=== PATIENT | female | born 1955 | race Hispanic/Latino ===

== ENCOUNTER 2016-08-20 13:40 | Emergency (ER) | payer MEDICAID ==
[2016-08-20 13:48] VITALS: RESP 20; TEMP 97.6; O2SAT 100
[2016-08-20 14:52] LABS: ADD MANUAL DIFF? NO
--- NOTE | 2016-08-20 14:55 | ED PDOC ---
Arrival/HPI - General Chief Complaint: Abnormal Skin Integrity Time Seen by Provider: 08/20/16 13:47 Historian: Patient, Family - History of Present Illness Narrative History of Present Illness (Text): 08/20/16 14:53 A 61 year old female, whose past medical history includes seizures, presents to the emergency room complaining of an abscess and 2 episodes of seizures today. Patient reports holding her Dilantin (generic) medication (1000 mg/day) for a few days b/c it was running out. However she still had a few and took at least 10 tabs (1000mg) prior to coming after having the seizures and has no symptoms at this time. Patient says seizures typically start on one side of the body and cause speech slurring and unsteadiness for 1-2 minutes with no LOC and today 's were typical with full resolution of symptoms as noted. Patient described her right side to cramp and become numb, which lasted about a minute or two. Patient states she has a headache but denies fever or any other complaints at this time. She states she currently feels fine to walk and has no weakness. Patient also says she has a breast skin abscess for which she is taking bactrim started 5 days ago. No fever or pus. Patient says she also had gotten a script for the 1000 mg daily of dilantin when she saw Dr. Crenshaw a few days ago but was unable to fill due to insurance pre-authorization requirement. Time/Duration: > week Symptom Onset: Gradual Symptom Course: Unchanged Activities at Onset: Rest Modifying Factors (Text): Dilantin (generic) help with her seizures Context: Home Associated Symptoms (Text): headache, vomiting Past Medical History - Provider Review Nursing Documentation Reviewed: Yes - Infectious Disease Hx of Infectious Diseases: None - Reproductive Menopause: Yes - Cardiac Hx Cardiac Disorders: Yes - Pulmonary Hx Respiratory Disorders: Yes Hx Emphysema: Yes - Neurological Hx Neurological Disorder: Yes Hx Seizures: Yes - HEENT Hx HEENT Disorder: No - Renal Hx Renal Disorder: No - Endocrine/Metabolic Hx Endocrine Disorders: Yes Hx Diabetes Mellitus Type 2: Yes - Hematological/Oncological Hx Blood Disorders: No - Integumentary Hx Dermatological Disorder: No - Musculoskeletal/Rheumatological Hx Musculoskeletal Disorders: No - Gastrointestinal Hx Gastrointestinal Disorders: No - Genitourinary/Gynecological Hx Genitourinary Disorders: No - Psychiatric Hx Psychophysiologic Disorder: Yes Hx Bipolar Disorder: Yes Hx Substance Use: No - Surgical History Hx Cholecystectomy: Yes - Anesthesia Hx Anesthesia: Yes Hx Anesthesia Reactions: No Hx Malignant Hyperthermia: No Family/Social History - Physician Review Nursing Documentation Reviewed: Yes Family/Social History: No Known Family HX Smoking Status: Former Smoker Hx Alcohol Use: No Hx Substance Use: No Allergies/Home Meds Allergies/Adverse Reactions: Allergies No Known Allergies Allergy (Unverified 01/31/15 15:05) Home Medications: Home Meds Medication Instructions Recorded Confirmed Atorvastatin [Lipitor] 10 mg PO DIN 01/31/15 08/20/16 Phenytoin, Extended [Dilantin 100 mg PO 5XD 01/31/15 08/20/16 Kapseals] Sulfamethoxazole/Trimethoprim 1 tab PO BID 08/20/16 08/20/16 [Bactrim DS Tab] Review of Systems - Review of Systems Constitutional: absent: Fevers ENT: Normal Respiratory: absent: SOB Cardiovascular: absent: Chest Pain Gastrointestinal: Vomiting Genitourinary Female: absent: Dysuria Skin: Abscess Neurological: Headache, Seizure (resolved). absent: Dizziness, Focal Weakness Physical Exam Vital Signs Reviewed: Yes Vital Signs Temp Pulse Resp BP Pulse Ox 08/20/16 13:47 97.6 F 81 20 145/92 H 100 Temperature: Afebrile Blood Pressure: Normal Pulse: Regular Respiratory Rate: Normal Appearance: Positive for: Well-Appearing, Non-Toxic, Comfortable Pain Distress: None Mental Status: Positive for: Alert and Oriented X 3 - Systems Exam Head: Present: Atraumatic, Normocephalic Pupils: Present: PERRL Extroacular Muscles: Present: EOMI Conjunctiva: Present: Normal Mouth: Present: Moist Mucous Membranes Pharnyx: Present: Normal. No: ERYTHEMA, EXUDATE Neck: Present: Normal Range of Motion Respiratory/Chest: Present: Clear to Auscultation, Good Air Exchange. No: Respiratory Distress, Accessory Muscle Use Cardiovascular: Present: Regular Rate and Rhythm, Normal S1, S2. No: Murmurs Abdomen: Present: Normal Bowel Sounds. No: Tenderness, Distention, Peritoneal Signs Upper Extremity: Present: Normal Inspection. No: Cyanosis, Edema Lower Extremity: Present: Normal Inspection. No: Edema Neurological: Present: GCS=15, CN II-XII Intact, Speech Normal, Motor Func Grossly Intact, Gait Normal Skin: Present: Abscess (mild induration with resolving- no tenderness (1 by 2.5 cm) lateral area L breast) Psychiatric: Present: Alert, Oriented x 3, Normal Insight, Normal Concentration Medical Decision Making ED Course and Treatment: 08/20/16 14:53 Impression: 61 year old female with seizures and abscess Differential Diagnosis included but are not limited to: idiopathic vs. subtherapeutic dilantin vs. supratherapeutic dilantin Plan: -- EKG -- CT head wo contrast -- Urinalysis -- Labs -- Reassess and disposition Prior Visits: Notes and results from previous visits were reviewed. Patient was reported to the emergency room on 01/31/15 for evaluation of cyanosis of lips. Progress Notes: EKG: Ordered, reviewed, and independently interpreted the EKG. Rate : 74 BPM Rhythm : NSR Interpretation : Normal intervals, normal axis. Comparison : No new ST/T change from 02/27/[address]: Creator : Mirza Miller MD FINDINGS: HEMORRHAGE: No intracranial hemorrhage. BRAIN: No mass effect or edema. No atrophy or chronic microvascular ischemic changes. VENTRICLES: Unremarkable. No hydrocephalus. CALVARIUM: Unremarkable. PARANASAL SINUSES: Unremarkable as visualized. No significant inflammatory changes. MASTOID AIR CELLS: Unremarkable as visualized. No inflammatory changes. OTHER FINDINGS: None. IMPRESSION: Normal CT of the Head. 08/20/16 15:40 Patient is fully awake here in the ED with a normal neuro exam. Normal gait. The patient has a prescription bottle that shows her to be on dilantin 1000mg daily, a very high dose. Dilantin level is 24, though patient says she thinks she took 10 at once earlier. There is no evidence of dilantin toxicity right now. She is maintained at 1000 mg per day - discussed with Dr. Carole Montesinos who said to have her on such a high dose of dilantin could be hazardous and recommended lowering it to 500mg daily total and start on keppra 500mg bid. Patient has been instructed to hold dilantin for rest of the day. She says she has an appointment with her neurologist on 09/04, so will give her med supply till then. Discussed with Dr. Crenshaw. - Lab Interpretations Lab Results: 08/20/16 14:35 08/20/16 14:35 Lab Results 08/20/16 15:37: Urine Color Yellow, Urine Appearance Clear, Urine pH 6.0, Ur Specific [place] >= 1.030, Urine Protein Negative, Urine Glucose (UA) Negative, Urine Ketones Negative, Urine Blood Negative, Urine Nitrate Negative, Urine Bilirubin Negative, Urine Urobilinogen 0.2, Ur Leukocyte Esterase Negative 08/20/16 15:00: Lactic Acid 1.2 08/20/16 14:35: WBC 5.7, RBC 4.37, Hgb 13.9, Hct 40.8, MCV 93.4, MCH 31.8, MCHC 34.1, RDW 13.0, Plt Count 194, MPV 11.0, Gran % 56.4, Lymph % (Auto) 28.4, [place] % (Auto) 12.6 H, Eos % (Auto) 2.1, Baso % (Auto) 0.5, Gran # 3.23, Lymph # 1.6, [place] # 0.7 H, Eos # 0.1, Baso # 0.03, PT 11.1, INR 1.03, APTT 25.2, Sodium 141, Potassium 3.8, Chloride 103, Carbon Dioxide 27, Anion Gap 15, BUN 23 H, Creatinine 0.8, Est GFR ( Amer) > 60, Est GFR (Non-Af Amer) > 60, Random Glucose 166 H, Calcium 8.8, Total Bilirubin 0.4, AST 18, ALT 25, Alkaline Phosphatase 104, Lactate Dehydrogenase 410, Total Creatine Kinase 27 L, Troponin I < 0.01, Total Protein 7.4, Albumin 3.9, Globulin 3.5, Albumin/ Globulin Ratio 1.1, Amylase 76, Lipase 70, Phenytoin 24 H* - RAD Interpretation Radiology Orders: 08/20/16 14:18 Brain [HEAD W/O CONTRAST] [CT] Stat - EKG Interpretation Interpreted by ED Physician: Yes Type: 12 lead EKG - Medication Orders Current Medication Orders: Sodium Chloride (Sodium Chloride 0.9%) 1,000 mls @ 999 mls/hr IV .Q1H1M STA Stop: 08/20/16 16:35 Last Admin: 08/20/16 15:41 Dose: 999 MLS/HR eMAR Start Stop Document 08/20/16 15:41 SRE (Rec: 08/20/16 15:42 SRE [id number]) Intravenous Solution Start Date 08/20/16 Start Time 15:41 End Date 08/20/16 End time 16:45 Total Infusion Time 64 Discontinued Medications Acetaminophen (Tylenol 325mg Tab) Confirm Administered Dose 650 mg .ROUTE .STK- MED ONE Stop: 08/20/16 15:46 Last Admin: 08/20/16 15:45 Dose: 650 MG MAR Pain/Vitals Document 08/20/16 15:45 SRE (Rec: 08/20/16 16:09 SRE [facility] [id number]) Pain Reassessment Is This A Pain ReAssessment? Yes Sleep Is patient sleeping during reassessment? No Presence of Pain Presence of Pain Yes Pain Scale Used Pain Scale Used Numeric Location Pain Location Body [place] Supervisor Description Constant Intensity 4 Scale Used Numeric Acetaminophen (Tylenol 650mg/20.3ml Solution Ud) 650 mg PO STAT STA Stop: 08/20/16 15:48 Last Admin: 08/20/16 16:19 Dose: Levetiracetam (Keppra) 500 mg PO STAT STA Stop: 08/20/16 15:41 Last Admin: 08/20/16 15:47 Dose: 500 MG - Scribe Statement The provider has reviewed the documentation as recorded by the Ayah Carlos All medical record entries made by the Ayah were at my direction and personally dictated by me. I have reviewed the chart and agree that the record accurately reflects my personal performance of the history, physical exam, medical decision making, and the department course for this patient. I have also personally directed, reviewed, and agree with the discharge instructions and disposition. Disposition/Present on Arrival - Present on Arrival Any Indicators Present on Arrival: No History of DVT/PE: No History of Uncontrolled Diabetes: No Urinary Catheter: No History of Decub. Ulcer: No History Surgical Site Infection Following: None - Disposition Have Diagnosis and Disposition been Completed?: Yes Diagnosis: Seizures, Elevated Dilantin level Disposition: HOME/ ROUTINE Disposition Time: 16:25 Patient Plan: Discharge Patient Problems: Current Active Problems Problem Status Diagnosed Elevated Dilantin level Acute Seizures Acute Condition: GOOD Discharge Instructions (ExitCare): Phenytoin (By mouth), Levetiracetam (By mouth) Additional Instructions: Apply warm compresses on your abscess. Finish the bactrim antibiotic given to you and continue for three more days thereafter. No more dilantin today and restart at 500 mg daily; also start keppra 500mg twice daily. Follow up with your primary care doctor and neurologist as scheduled. Return to the emergency department if any new concerning symptoms. Prescriptions: Sulfamethoxazole/Trimethoprim [Bactrim DS 800 mg-160 mg] 1 tab PO BID #6 tab Phenytoin, Extended [Dilantin Kapseals] 500 mg PO HS #75 cap levETIRAcetam [Keppra] 1 tab PO BID #30 tab Referrals: Hazel Crenshaw MD [Primary Care Provider] - Follow up with primary
[2016-08-20 15:06] LABS: BASO # 0.03 K/mm3 (0.0-2.0); BASO % 0.5 % (0.0-3.0); EOS # 0.1 (0.0-0.7); EOS % 2.1 % (1.5-5.0); GRAN # 3.23 (1.4-6.5); GRAN % 56.4 % (50.0-68.0); HEMATOCRIT 40.8 % (36.0-48.0); LYMPH # 1.6 (1.2-3.4); LYMPH % 28.4 % (22.0-35.0); MEAN CELL VOLUME 93.4 fL (80.0-105.0); MEAN CORPUSCULAR HEMOGLOBIN 31.8 pg (25.0-35.0); MEAN CORPUSCULAR HGB CONC 34.1 g/dl (31.0-37.0); MONO # 0.7 (0.1-0.6); MONO % 12.6 % (1.0-6.0); PLATELET COUNT 194 10^3/uL (120.0-450.0); WHITE BLOOD COUNT 5.7 10^3/ul (4.5-11.0)
[2016-08-20 15:16] LABS: ALB/GLOB RATIO 1.1 (1.1-1.8); ALKALINE PHOSPHATASE 104 U/L (38-133); ALT/SGPT 25 U/L (7-56); AMYLASE 76 U/L (35-125); AST/SGOT 18 U/L (15-39); BILIRUBIN,TOTAL 0.4 mg/dL (0.2-1.3); BLOOD UREA NITROGEN 23 mg/dL (7-21); CALCIUM 8.8 mg/dL (8.4-10.5); CARBON DIOXIDE 27 mmol/L (21-33); CHLORIDE 103 mmol/L (98-107); GFR AFRICAN-AMERICAN > 60; GLUCOSE,RANDOM 166 mg/dL (70-110); LIPASE 70 U/L (23-300); POTASSIUM 3.8 mmol/L (3.6-5.0); SODIUM 141 mmol/L (132-148); TOTAL PROTEIN 7.4 g/dL (5.8-8.3)
[2016-08-20 15:17] LABS: INR 1.03 (0.93-1.08); PARTIAL THROMBOPLASTIN TIME 25.2 Seconds (23.7-30.8)
--- NOTE | 2016-08-20 15:26 | CT ---
PROCEDURE: CT HEAD WITHOUT CONTRAST. HISTORY: multiple seizures, headace COMPARISON: None available. TECHNIQUE: Axial computed tomography images were obtained through the head/brain without intravenous contrast. Radiation dose: Total exam DLP = 746 mGy-cm. This CT exam was performed using one or more of the following dose reduction techniques: Automated exposure control, adjustment of the mA and/or kV according to patient size, and/or use of iterative reconstruction technique. FINDINGS: HEMORRHAGE: No intracranial hemorrhage. BRAIN: No mass effect or edema. No atrophy or chronic microvascular ischemic changes. VENTRICLES: Unremarkable. No hydrocephalus. CALVARIUM: Unremarkable. PARANASAL SINUSES: Unremarkable as visualized. No significant inflammatory changes. MASTOID AIR CELLS: Unremarkable as visualized. No inflammatory changes. OTHER FINDINGS: None. IMPRESSION: Normal CT of the Head.
[2016-08-20 15:28] LABS: TROPONIN I < 0.01 ng/mL
[2016-08-20] MEDS ORDERED: Sodium Chloride 0.9% 1,000 ML IV STA (15:35)
[2016-08-20] MEDS ORDERED: Acetaminophen 650mg/20.3ml solution UD PO STA (15:47)
[2016-08-20 15:53] LABS: URINE APPEARANCE CLEAR (CLEAR); URINE BILIRUBIN NEGATIVE (NEGATIVE); URINE BLOOD NEGATIVE (NEGATIVE); URINE COLOR YELLOW (YELLOW); URINE GLUCOSE (UA) NEGATIVE (NEGATIVE); URINE KETONE NEGATIVE (NEGATIVE); URINE LEUKOCYTE ESTERASE NEGATIVE Leu/uL (NEGATIVE); URINE PROTEIN NEGATIVE mg/dL (<30 mg/dL); URINE UROBILINOGEN 0.2 E.U./dL (<1 E.U./dL)
[2016-08-20 16:54] VITALS: BP 136/69; PULSE 89
--- NOTE | 2016-08-21 08:58 | CARD ---
APPROVED REPORT EKG Measurement Heart [id number] <Conclusion> Normal sinus rhythm Inferior infarct, age undetermined T wave abnormality, consider anterior ischemia Abnormal ECG
== END 2016-08-20 16:54 | disposition home or self-care (01) ==
LOC: ED 13:40
DX: R56.9 Unspecified convulsions (principal)
CPT/HCPCS: 70450; 80053; 80185; 81003; 82150; 82550; 83605; 83615; 83690; 84484; 85025; 85610; 85730; 93005; 96360; 99283; J7040

== ENCOUNTER 2016-09-02 11:35 | Emergency (ER) | payer MEDICAID ==
[2016-09-02 11:55] VITALS: TEMP 98.2; BMI 40.3
--- NOTE | 2016-09-02 12:22 | ED PDOC ---
Arrival/HPI - General Chief Complaint: Shortness Of Breath Time Seen by Provider: 09/02/16 11:39 Historian: Patient - History of Present Illness Narrative History of Present Illness (Text): 09/02/16 12:14 A 61 year old female, whose past medical history includes seizures, presents to the emergency department complaining of urinary retention for 1 week. Patient reports right sided back pain, left lower extremity pain, headache, nausea and a loss of appetite. Contrary to triages note patient denies any chest pain or shortness of breath. Patient denies any fever, chills, vomiting, diarrhea or any other complaints. Patient denies any recent travel. PMD: Dr. Crenshaw Time/Duration: 1 week Symptom Course: Unchanged Quality: Other Context: Home Past Medical History - Provider Review Nursing Documentation Reviewed: Yes - Infectious Disease Hx of Infectious Diseases: None - Cardiac Hx Cardiac Disorders: Yes - Pulmonary Hx Respiratory Disorders: Yes Hx Emphysema: Yes - Neurological Hx Neurological Disorder: Yes Hx Seizures: Yes - HEENT Hx HEENT Disorder: No - Renal Hx Renal Disorder: No - Endocrine/Metabolic Hx Endocrine Disorders: No - Hematological/Oncological Hx Blood Disorders: No - Integumentary Hx Dermatological Disorder: No - Musculoskeletal/Rheumatological Hx Musculoskeletal Disorders: No - Gastrointestinal Hx Gastrointestinal Disorders: No - Genitourinary/Gynecological Hx Genitourinary Disorders: No - Psychiatric Hx Psychophysiologic Disorder: Yes Hx Bipolar Disorder: Yes Hx Substance Use: No - Surgical History Hx Cholecystectomy: Yes - Anesthesia Hx Anesthesia: Yes Hx Anesthesia Reactions: No Hx Malignant Hyperthermia: No Family/Social History - Physician Review Nursing Documentation Reviewed: Yes Family/Social History: No Known Family HX Smoking Status: Former Smoker Hx Alcohol Use: No Hx Substance Use: No Allergies/Home Meds Allergies/Adverse Reactions: Allergies No Known Allergies Allergy (Verified 09/02/16 11:54) Home Medications: Home Meds Medication Instructions Recorded Confirmed Atorvastatin [Lipitor] 10 mg PO DIN 01/31/15 08/20/16 Albuterol HFA [Ventolin HFA 90 1 inh INH PRN PRN 09/02/16 09/02/16 mcg/actuation (8 g)] Clonazepam [Klonopin] 0.5 mg PO TID 09/02/16 09/02/16 Cyanocobalamin [Vitamin B12] 1,000 mcg PO DAILY 09/02/16 09/02/16 Mupirocin 2% Cream [Bactroban 1 appful TOP BID 09/02/16 09/02/16 Cream] Peg 400/Hypromellose/Glycerin 1 drop BOTHEYES QID 09/02/16 09/02/16 [Artificial Tears Drops] Quetiapine Fumarate [Seroquel] 200 mg PO HS 09/02/16 09/02/16 Zolpidem [Ambien] 10 mg PO HS 09/02/16 09/02/16 levETIRAcetam [Keppra] 500 mg PO BID 09/02/16 09/02/16 Review of Systems - Physician Review All systems were reviewed & negative as marked: Yes - Review of Systems Constitutional: absent: Fevers, Night Sweats Respiratory: absent: SOB Cardiovascular: absent: Chest Pain Gastrointestinal: Nausea, Appetite Changes (Loss of appetite). absent: Diarrhea , Vomiting Genitourinary Female: Other (Urinary retention) Musculoskeletal: Back Pain (Right sided back pain), Other (Left lower extremity pain) Neurological: Headache Physical Exam Vital Signs Reviewed: Yes Vital Signs Temp Pulse Resp BP Pulse Ox 09/02/16 13:00 69 18 130/68 98 09/02/16 11:55 18 09/02/16 11:44 98.2 F 75 18 132/72 98 Temperature: Afebrile Blood Pressure: Normal Pulse: Regular Respiratory Rate: Normal Appearance: Positive for: Well-Appearing, Non-Toxic, Comfortable Pain Distress: None Mental Status: Positive for: Alert and Oriented X 3 - Systems Exam Head: Present: Atraumatic, Normocephalic Pupils: Present: PERRL Extroacular Muscles: Present: EOMI Conjunctiva: Present: Normal Ears: Present: Normal, NORMAL TM, Normal Canal. No: Erythema, TM Bulging, Fluid , TM Perf Mouth: Present: Moist Mucous Membranes Pharnyx: Present: Normal. No: ERYTHEMA, EXUDATE, TONSILS ENLARGED, Peritonsilar Swelling, Uvular Deviation, Muffled/Hoarse Voice, [place], Soft Palate/Uvular Edema Neck: Present: Normal Range of Motion Respiratory/Chest: Present: Clear to Auscultation, Good Air Exchange. No: Respiratory Distress, Accessory Muscle Use Cardiovascular: Present: Regular Rate and Rhythm, Normal S1, S2. No: Murmurs Abdomen: Present: Normal Bowel Sounds. No: Tenderness, Distention, Peritoneal Signs Back: Present: CVA Tenderness (Mild right CVA tenderness to palpation) Upper Extremity: Present: Normal Inspection. No: Cyanosis, Edema Lower Extremity: Present: Normal Inspection, NORMAL PULSES, Neurovascularly Intact. No: Edema, CALF TENDERNESS, Tenderness, Swelling, Erythema, Deformity, Temperature Abnormalties Neurological: Present: GCS=15, CN II-XII Intact, Speech Normal Skin: Present: Warm, Dry, Normal Color. No: Rashes Psychiatric: Present: Alert, Oriented x 3, Normal Insight, Normal Concentration Medical Decision Making ED Course and Treatment: 09/02/16 12:14 Impression: A 61 year old female with urinary retention. Patient notes right back pain, left lower extremity pain, headache. Mild right CVA tenderness on exam. Plan: -- Abdomen and pelvis CT -- Duplex lower extremity ultrasound -- Chest xray -- EKG -- Labs -- Urine culture and Urinalysis -- Tylenol -- Reassess and disposition Prior Visits: Notes and results from previous visits were reviewed. Patient last seen in the ED on 08/20/16 for a seizures and elevated Dilantin level. Progress Notes: EKG shows NSR at 75 BPM with normal intervals, low voltage, with no changes from prior on 08/20/16. Interpreted by me. Report Date : 09/02/2016 12:46:51 Procedure: Chest xray Dictator : Mirza Miller MD IMPRESSION: No active disease. Report Date : 09/02/2016 13:08:10 PROCEDURE: CT Abdomen and pelvis Dictator : Alfonzo Cody MD IMPRESSION: Punctate nonobstructing calcification upper/ midpole right kidney. Small calcification left renal pelvis felt to be vascular in origin. No evidence of hydronephrosis. Small right renal cyst. Hepatosplenomegaly. Extensive diverticulosis without radiographic evidence of acute diverticulitis. 09/02/16 13:48 Ultrasound results discussed with radiologist, which is negative for DVT. - Lab Interpretations Lab Results: 09/02/16 12:35 09/02/16 12:35 Lab Results 09/02/16 12:35: Sodium 139, Potassium 4.2, Chloride 102, Carbon Dioxide 26, Anion Gap 15, BUN 16, Creatinine 0.6, Est GFR ( Amer) > 60, Est GFR (Non- Af Amer) > 60, Random Glucose 106, Calcium 8.4, Magnesium 1.7, Total Bilirubin 0.6, AST 18, ALT 28, Alkaline Phosphatase 96, Lactate Dehydrogenase 583, Total Creatine Kinase 43, Troponin I < 0.01, NT-Pro-B Natriuret Pep 147, Total Protein 7.6, Albumin 4.0, Globulin 3.6, Albumin/Globulin Ratio 1.1 09/02/16 12:35: Urine Color Yellow, Urine Appearance Clear, Urine pH 6.0, Ur Specific [place] >= 1.030, Urine Protein Negative, Urine Glucose (UA) Negative, Urine Ketones Negative, Urine Blood Trace-intact H, Urine Nitrate Negative, Urine Bilirubin Negative, Urine Urobilinogen 0.2, Ur Leukocyte Esterase Trace H , Urine RBC 0 - 2, Urine WBC 5 - 10, Ur Epithelial Cells 10 - 12, Urine Bacteria Trace 09/02/16 12:35: WBC 5.3, RBC 4.34, Hgb 13.8, Hct 41.1, MCV 94.7, MCH 31.8, MCHC 33.6, RDW 13.3, Plt Count 164, MPV 10.4, Gran % 54.6, Lymph % (Auto) 28.2, [place] % (Auto) 13.6 H, Eos % (Auto) 3.0, Baso % (Auto) 0.6, Gran # 2.90, Lymph # 1.5, [place] # 0.7 H, Eos # 0.2, Baso # 0.03 I have reviewed the lab results: Yes - RAD Interpretation Radiology Orders: 09/02/16 11:57 CHEST PORTABLE [RAD] Stat 09/02/16 12:14 ABD & PELVIS W/O PO OR IV CONT [CT] Stat 09/02/16 12:15 DUPLEX LOWER EXTRM VEIN LEFT [US] Stat - Medication Orders Current Medication Orders: Discontinued Medications Acetaminophen (Tylenol 325mg Tab) 650 mg PO STAT STA Stop: 09/02/16 12:17 Last Admin: 09/02/16 12:22 Dose: 650 mg - Scribe Statement The provider has reviewed the documentation as recorded by the Madhuriibdeidra Palomo Provider Scribe Attestation: All medical record entries made by the Scribe were at my direction and personally dictated by me. I have reviewed the chart and agree that the record accurately reflects my personal performance of the history, physical exam, medical decision making, and the department course for this patient. I have also personally directed, reviewed, and agree with the discharge instructions and disposition. Disposition/Present on Arrival - Present on Arrival Any Indicators Present on Arrival: No History of DVT/PE: No History of Uncontrolled Diabetes: No Urinary Catheter: No History of Decub. Ulcer: No History Surgical Site Infection Following: None - Disposition Have Diagnosis and Disposition been Completed?: Yes Diagnosis: Weakness Disposition: HOME/ ROUTINE Disposition Time: 13:45 Patient Plan: Discharge Patient Problems: Current Active Problems Problem Status Onset Weakness Acute Condition: IMPROVED Discharge Instructions (ExitCare): Weakness (ED) Additional Instructions: Thank you for letting us take care of you today. Your provider was Dr. Mar. The emergency medical care you received today was directed at your acute symptoms. If you were prescribed any medication, please fill it and take as directed. It may take several days for your symptoms to resolve. Return to the Emergency Department if your symptoms worsen, do not improve, or if you have any other problems. Please contact your doctor or call one of the physicians/clinics you have been referred to that are listed on the Patient Visit Information form that is included in your discharge packet. Bring any paperwork you were given at discharge with you along with any medications you are taking to your follow up visit. Our treatment cannot replace ongoing medical care by a primary care provider (PCP) outside of the emergency department. Thank you for allowing the [facility] team to be part of your care today. Follow up with Dr. Crenshaw in 3-4 days for re-evaluation. Referrals: Hazel Crenshaw MD [Primary Care Provider] - Follow up with primary Forms: Air Visits Discharge (Togolese)
[2016-09-02 12:45] LABS: ADD MANUAL DIFF? NO
[2016-09-02 12:48] LABS: BASO # 0.03 K/mm3 (0.0-2.0); BASO % 0.6 % (0.0-3.0); EOS # 0.2 (0.0-0.7); GRAN % 54.6 % (50.0-68.0); HEMATOCRIT 41.1 % (36.0-48.0); LYMPH # 1.5 (1.2-3.4); LYMPH % 28.2 % (22.0-35.0); MEAN CELL VOLUME 94.7 fL (80.0-105.0); MEAN CORPUSCULAR HEMOGLOBIN 31.8 pg (25.0-35.0); MEAN CORPUSCULAR HGB CONC 33.6 g/dl (31.0-37.0); MEAN PLATELET VOLUME 10.4 fl (7.0-11.0); MONO # 0.7 (0.1-0.6); MONO % 13.6 % (1.0-6.0); PLATELET COUNT 164 10^3/uL (120.0-450.0); RED CELL DISTRIBUTION WIDTH 13.3 % (11.5-14.5); URINE BILIRUBIN NEGATIVE (NEGATIVE); URINE BLOOD TRACE-INTACT (NEGATIVE); URINE GLUCOSE (UA) NEGATIVE (NEGATIVE); URINE KETONE NEGATIVE (NEGATIVE); URINE LEUKOCYTE ESTERASE TRACE Leu/uL (NEGATIVE); URINE PROTEIN NEGATIVE mg/dL (<30 mg/dL); URINE UROBILINOGEN 0.2 E.U./dL (<1 E.U./dL); WHITE BLOOD COUNT 5.3 10^3/ul (4.5-11.0)
--- NOTE | 2016-09-02 12:48 | RAD ---
HISTORY: chest pain COMPARISON: 02/27/2016 FINDINGS: LUNGS: No active pulmonary disease. PLEURA: No significant pleural effusion identified, no pneumothorax apparent. CARDIOVASCULAR: Normal. OSSEOUS STRUCTURES: No significant abnormalities. VISUALIZED UPPER ABDOMEN: Normal. OTHER FINDINGS: None. IMPRESSION: No active disease.
[2016-09-02 12:51] LABS: URINE APPEARANCE CLEAR (CLEAR); URINE COLOR YELLOW (YELLOW)
[2016-09-02 13:01] LABS: ALB/GLOB RATIO 1.1 (1.1-1.8); ALKALINE PHOSPHATASE 96 U/L (38-133); ALT/SGPT 28 U/L (7-56); AST/SGOT 18 U/L (15-39); BILIRUBIN,TOTAL 0.6 mg/dL (0.2-1.3); BLOOD UREA NITROGEN 16 mg/dL (7-21); CALCIUM 8.4 mg/dL (8.4-10.5); CARBON DIOXIDE 26 mmol/L (21-33); CHLORIDE 102 mmol/L (98-107); GFR AFRICAN-AMERICAN > 60; GLUCOSE,RANDOM 106 mg/dL (70-110); MAGNESIUM 1.7 mg/dL (1.7-2.2); POTASSIUM 4.2 mmol/L (3.6-5.0); SODIUM 139 mmol/L (132-148); TOTAL PROTEIN 7.6 g/dL (5.8-8.3)
--- NOTE | 2016-09-02 13:09 | CT ---
PROCEDURE: CT Abdomen and pelvis HISTORY: right flank pain COMPARISON: None. TECHNIQUE: Contiguous axial images of the abdomen and pelvis without oral oral IV contrast . Coronal and Sagittal reformats generated. Radiation dose: Total exam DLP = 1732.76 mGy-cm. This CT exam was performed using one or more of the following dose reduction techniques: Automated exposure control, adjustment of the mA and/or kV according to patient size, and/or use of iterative reconstruction technique. FINDINGS: LOWER THORAX: Lung bases are clear. No infiltrate effusion or basilar pneumothorax. Minimal linear scarring left lung base. Tiny hiatal hernia with slight wall thickening of the distal esophagus that could be due to protrusion of gastric mucosa. Possibility of esophagitis not excluded. LIVER: Liver is enlarged measuring nearly 19 cm in CC dimension. No obvious hepatic mass or collection identified on this noncontrast study. . GALLBLADDER AND BILE DUCTS: Status post cholecystectomy PANCREAS: The pancreas is unremarkable. SPLEEN: Spleen is also mildly enlarged measuring approximately 13.3 cm in CC dimension. No obvious splenic mass or collection. Move ADRENALS: No adrenal lesions. KIDNEYS AND URETERS: No evidence of obstructive nephrolithiasis. There appears to be a very tiny - punctate radiopaque density which could represent a punctate calcification within the upper/ midpole right kidney. In addition, there is a small elliptical shaped 2.6 x 1.3 mm cyst posteromedial aspect upper pole right kidney. No evidence hydronephrosis. . Small approximately 2 mm calcification left renal pelvis likely vascular. No evidence of hydronephrosis. BLADDER: Urinary bladder is incompletely distended which may account for slight thick-walled appearance. Rule out cystitis REPRODUCTIVE: Uterus and adnexal structures unremarkable. Emerson APPENDIX: Normal appendix. BOWEL: Evaluation of the bowel is limited due to the lack of oral contrast material. Stomach is incompletely distended. Visualized loops of small bowel exhibit normal contour and caliber. No evidence of acute mechanical small bowel obstruction. Multiple colonic diverticula the bulk of which arise from the sigmoid, descending and transverse colon though of few scattered right-sided colonic diverticula are also present. PERITONEUM: Unremarkable. No fluid collection. No free air. Tiny fat containing umbilical hernia. LYMPH NODES: No significant on lymphadenopathy. She. VASCULATURE: Unremarkable. No aortic aneurysm. BONES: Osseous structures appear intact. Minor multilevel degenerative spondylosis of the lower thoracic and lumbar spine. No destructive lesions are identified OTHER FINDINGS: None. IMPRESSION: Punctate nonobstructing calcification upper/ midpole right kidney. Small calcification left renal pelvis felt to be vascular in origin. No evidence of hydronephrosis. Small right renal cyst. Hepatosplenomegaly. Extensive diverticulosis without radiographic evidence of acute diverticulitis. See above discussion for additional findings and details.
[2016-09-02 13:13] LABS: TROPONIN I < 0.01 ng/mL
[2016-09-02 13:17] LABS: URINE BACTERIA TRACE (NEG); URINE RBC 0 - 2 /hpf (0-2)
[2016-09-02 15:00] VITALS: O2SAT 100
--- NOTE | 2016-09-02 15:31 | CARD ---
APPROVED REPORT EKG Measurement Heart [id number] <Conclusion> Normal sinus rhythm Low voltage QRS Possible Lateral infarct, age undetermined Inferior infarct, age undetermined ST & T wave abnormality, consider anterior ischemia Abnormal ECG
--- NOTE | 2016-09-02 16:05 | US ---
PROCEDURE: Left lower extremity venous US HISTORY: Leg pain and swelling. Evaluate for DVT. PHYSICIAN(S): Arpan Ann MD. TECHNIQUE: Duplex sonography and color-flow Doppler with graded compression were used to evaluate the deep venous system of the left lower extremity. FINDINGS: The visualized deep venous system of the left lower extremity is sonographically normal and compressible. Normal wave forms and augmentation are seen. There is no sonographic evidence for deep venous thrombosis in the visualized segments of the left lower extremity. IMPRESSION: 1. No sonographic evidence for deep venous thrombosis in the visualized segments of the left lower extremity.
[2016-09-02 16:23] VITALS: BP 132/80; PULSE 74; RESP 16
== END 2016-09-02 16:10 | disposition home or self-care (01) ==
LOC: ED 11:35
DX: R53.1 Weakness (principal); Z87.891 Personal history of nicotine dependence

== ENCOUNTER 2018-03-19 14:33 | Emergency (ER) | payer MEDICAID ==
[2018-03-19 14:38] VITALS: RESP 18; TEMP 97.7
[2018-03-19 14:40] VITALS: BMI 42.3
[2018-03-19 15:08] VITALS: BP 143/57; PULSE 82; O2SAT 93
[2018-03-19 15:20] LABS: BASO # 0.02 K/mm3 (0.0-2.0); BASO % 0.4 % (0.0-3.0); EOS # 0.1 (0.0-0.7); EOS % 2.3 % (1.5-5.0); GRAN # 2.68 (1.4-6.5); GRAN % 50.9 % (50.0-68.0); HEMOGLOBIN 14.4 g/dL (12.0-16.0); LYMPH # 1.9 (1.2-3.4); LYMPH % 36.3 % (22.0-35.0); MEAN CELL VOLUME 94.2 fl (80.0-105.0); MEAN CORPUSCULAR HEMOGLOBIN 31.2 pg (25.0-35.0); MEAN CORPUSCULAR HGB CONC 33.1 g/dl (31.0-37.0); MEAN PLATELET VOLUME 10.9 fl (7.0-11.0); MONO # 0.5 (0.1-0.6); MONO % 10.1 % (1.0-6.0); RBC 4.62 10^6/uL (3.5-6.1); RED CELL DISTRIBUTION WIDTH 13.3 % (11.5-14.5); WHITE BLOOD COUNT 5.3 10^3/uL (4.5-11.0)
[2018-03-19 15:24] LABS: INR 1.04; PARTIAL THROMBOPLASTIN TIME 26.4 Seconds (25.1-36.5); PROTHROMBIN TIME 11.9 SECONDS (9.4-12.5)
--- NOTE | 2018-03-19 15:28 | ED PDOC ---
Arrival/HPI - General Chief Complaint: Chest Pain Historian: Patient - History of Present Illness Narrative History of Present Illness (Text): 03/19/18 15:32 63yo female with pmhx of anxiety, vertigo, hypertension, present with complaint of chest pain that she described as "heaviness", headache, blurred vision, dizziness, tinnitus x weeks. States she saw a Neurologist recently for the vertigo was referred for US which she did, but don't have the result yet. States she saw a Environmental Compliance Engineer once for this chest pain, but couldn't do the test because she had a fracture. She denies nausea, vomiting, diaphoresis, abdominal pain, fever, chills, , urinary symptoms, focal weakness, any other complaint. Past Medical History - Provider Review Nursing Documentation Reviewed: Yes - Infectious Disease Hx of Infectious Diseases: None - Cardiac Hx Cardiac Disorders: Yes - Pulmonary Hx Respiratory Disorders: Yes Hx Chronic Obstructive Pulmonary Disease (COPD): Yes - Neurological Hx Neurological Disorder: Yes Hx Seizures: Yes (LAST ATTACK 2 WEEKS AGO) - HEENT Hx HEENT Disorder: No - Renal Hx Renal Disorder: No - Endocrine/Metabolic Hx Endocrine Disorders: No - Hematological/Oncological Hx Blood Disorders: No - Integumentary Hx Dermatological Disorder: No - Musculoskeletal/Rheumatological Hx Musculoskeletal Disorders: No - Gastrointestinal Hx Gastrointestinal Disorders: No - Genitourinary/Gynecological Hx Genitourinary Disorders: No - Psychiatric Hx Psychophysiologic Disorder: Yes Hx Anxiety: Yes Hx Bipolar Disorder: Yes Hx Emotional Abuse: No Hx Physical Abuse: No Hx Substance Use: No - Surgical History Hx Breast Biopsy: Yes (LT) Hx Cholecystectomy: Yes Other/Comment: RT FOOT SURGERY - Anesthesia Hx Anesthesia: Yes Hx Anesthesia Reactions: No Hx Malignant Hyperthermia: No - Suicidal Assessment Feels Threatened In Home Enviroment: No Family/Social History - Physician Review Nursing Documentation Reviewed: Yes Family/Social History: Unknown Family HX Smoking Status: Never Smoked Hx Alcohol Use: No Hx Substance Use: No Allergies/Home Meds Allergies/Adverse Reactions: Allergies No Known Allergies Allergy (Verified 03/19/18 14:39) Home Medications: Home Meds Medication Instructions Recorded Confirmed Atorvastatin [Lipitor] 10 mg PO DIN 01/31/15 09/09/17 Albuterol HFA [Ventolin HFA 90 1 inh INH PRN PRN 09/02/16 09/09/17 mcg/actuation (8 g)] Clonazepam [Klonopin] 0.5 mg PO TID 09/02/16 09/09/17 Cyanocobalamin [Vitamin B12] 1,000 mcg PO DAILY 09/02/16 09/09/17 Peg 400/Hypromellose/Glycerin 1 drop BOTHEYES QID 09/02/16 09/09/17 [Artificial Tears Drops] Quetiapine Fumarate [Seroquel] 200 mg PO HS 09/02/16 09/09/17 RX: Mupirocin 2% Cream [Bactroban 1 appful TOP BID 09/02/16 09/09/17 Cream] Zolpidem [Ambien] 10 mg PO HS 09/02/16 09/09/17 levETIRAcetam [Keppra] 500 mg PO BID 09/02/16 09/09/17 Phenytoin, Extended [Dilantin 300 mg PO BID 09/09/17 09/09/17 Kapseals] Review of Systems - Physician Review All systems were reviewed & negative as marked: Yes - Review of Systems Constitutional: Normal Eyes: Normal ENT: Normal Respiratory: Normal Cardiovascular: Chest Pain Gastrointestinal: Normal Genitourinary Female: Normal Musculoskeletal: Normal Skin: Normal Neurological: Headache, Dizziness Endocrine: Normal Hemo/Lymphatic: Normal Psychiatric: Normal Physical Exam Vital Signs Reviewed: Yes Vital Signs Temp Pulse Resp BP Pulse Ox 03/19/18 15:07 97.7 F 82 18 143/57 L 93 L 03/19/18 14:35 97.7 F 86 18 141/112 H 95 Temperature: Afebrile Blood Pressure: Hypertensive Pulse: Regular Respiratory Rate: Normal Appearance: Positive for: Well-Appearing, Non-Toxic, Comfortable, Other (Morbidly obese) Pain Distress: None Mental Status: Positive for: Alert and Oriented X 3 - Systems Exam Head: Present: Atraumatic, Normocephalic Pupils: Present: PERRL Extroacular Muscles: Present: EOMI Conjunctiva: Present: Normal Mouth: Present: Moist Mucous Membranes Neck: Present: Normal Range of Motion Respiratory/Chest: Present: Clear to Auscultation, Good Air Exchange. No: Respiratory Distress, Accessory Muscle Use, Wheezes, Decreased Breath Sounds, Rales, Retracting, Rhonchi Cardiovascular: Present: Regular Rate and Rhythm, Normal S1, S2. No: Murmurs Abdomen: No: Tenderness, Distention, Peritoneal Signs Back: Present: Normal Inspection Upper Extremity: Present: Normal Inspection. No: Cyanosis, Edema Lower Extremity: Present: Normal Inspection. No: Edema Neurological: Present: GCS=15, CN II-XII Intact, Speech Normal, Motor Func Grossly Intact, Normal Sensory Function, Normal Cerebellar Funct, Norm Deep Tendon Reflexes, Gait Normal, Memory Normal, Normal 2Pt Descrimination, Other (No focal neurological deficit) Skin: Present: Warm, Dry, Normal Color. No: Rashes Psychiatric: Present: Alert, Oriented x 3, Normal Insight, Normal Concentration Medical Decision Making ED Course and Treatment: 03/19/18 16:50 63yo female in ED for chest pain, dizziness, headache. Labs EKG CXR ASA 324mg reassess EKG NSR @ 86bpm with LAD N-STEMI Pt requested for Klonopin, states she didn't take her Klonopin today and feels anxious. Klonopin was given and on re evaluation she states she feels better. Labs was reviewed and the first CE was negative. Chest NAD Secondary to her cardiac risk factors she was offered admission and she declined. States she knew that it was her anxiety that she usually gets the chest pain with her anxious and that she has been anxious a lot lately because of the Carotid US result that is still pending. The risk of her leaving was DW both patient and her daughter's by the bedside. They verbalized understanding of this risk and still insisted on singing out AMA. The patient is choosing to leave against medical advice. I have personally explained to the patient that choosing to do so may result in permanent bodily harm or . I have discussed at great length that without further evaluation and monitoring there may be unforeseen circumstances and/or deterioration causing permanent bodily harm or as a result of their choice. The patient is alert, oriented, and shows the mental capacity to make clear decisions regarding the patients health care at this time. The patient continues to wish to leave against medical advice. In light of the patients decision to leave against medical advice, follow-up has been arranged and the patient is aware of the importance to following up as instructed. The patient has been advised that they should return to the emergency room immediately if they change their mind at any time, or if their c ondition begins to change or worsen in any way. - RAD Interpretation Radiology Orders: 03/19/18 14:45 CHEST PORTABLE [RAD] Stat - Medication Orders Current Medication Orders: Clonazepam (Klonopin) 0.5 mg PO ONCE STA; Protocol Stop: 03/19/18 15:21 Discontinued Medications Aspirin (Aspirin) 325 mg PO STAT STA Stop: 03/19/18 14:46 Last Admin: 03/19/18 15:03 Dose: 325 mg Disposition/Present on Arrival - Present on Arrival Any Indicators Present on Arrival: No History of DVT/PE: No History of Uncontrolled Diabetes: No Urinary Catheter: No History of Decub. Ulcer: No History Surgical Site Infection Following: None - Disposition Have Diagnosis and Disposition been Completed?: Yes Diagnosis: Chest pain, Dizziness, Anxiety Disposition: AGAINST MEDICAL ADVICE Disposition Time: 16:40 Condition: FAIR Discharge Instructions (ExitCare): Chest Pain (ED) Forms: [employer] (Hungarian)
--- NOTE | 2018-03-19 15:38 | RAD ---
Date of service: 03/19/2018 HISTORY: chest pain COMPARISON: 09/02/2016 FINDINGS: LUNGS: No active pulmonary disease. PLEURA: No significant pleural effusion identified, no pneumothorax apparent. CARDIOVASCULAR: No aortic atherosclerotic calcification present. Normal cardiac size. No pulmonary vascular congestion. OSSEOUS STRUCTURES: No significant abnormalities. VISUALIZED UPPER ABDOMEN: Normal. OTHER FINDINGS: None. IMPRESSION: No active disease.
[2018-03-19 16:19] LABS: ALB/GLOB RATIO 1.2 (1.1-1.8); ALBUMIN 4.1 g/dL (3.0-4.8); ALT/SGPT 19 U/L (7-56); AST/SGOT 20 U/L (14-36); BLOOD UREA NITROGEN 18 mg/dL (7-21); CALCIUM 8.8 mg/dL (8.4-10.5); GFR NON-AFRICAN AMERICAN > 60
[2018-03-19 16:31] LABS: B-TYPE NATRIURETIC PEPTIDE 43.5 pg/mL (0-450); TROPONIN I < 0.01 ng/mL
--- NOTE | 2018-03-19 19:23 | CARD ---
APPROVED REPORT Date of service: 03/19/2018 EKG Measurement Heart [id number] <Conclusion> Normal sinus rhythm Left axis deviation Inferior infarct, age undetermined Abnormal ECG
== END 2018-03-19 17:14 | disposition left against medical advice (07) ==
LOC: ED 14:33
DX: R07.9 Chest pain, unspecified (principal); R42 Dizziness and giddiness; F41.9 Anxiety disorder, unspecified; I10 Essential (primary) hypertension

== ENCOUNTER 2018-06-22 07:34 | Outpatient (CLI) | payer MEDICAID | END 2018-06-22 07:35 | disposition home or self-care (01) | LOC: CARDIO 07:34 ==